=== PATIENT | female | born 1950 | race African-American/Black ===

== ENCOUNTER 2022-06-04 11:40 | Inpatient (IN) ==
[2022-06-04] MEDS ORDERED: SODIUM CHLORIDE 0.9% 500 ML IV STA ×2 (12:45→16:07)
[2022-06-04] MEDS ORDERED: ONDANSETRON 4 MG/2 ML VIAL IV STA (13:08)
[2022-06-04] MEDS ORDERED: MORPHINE 10 MG/1 ML VIAL IV STA (13:08)
[2022-06-04] MEDS ORDERED: MORPHINE 2 MG/1 ML SYRINGE ONE (13:13)
[2022-06-04 13:38] LABS: Albumin 2.1 G/DL (3.4-5.0); Bilirubin,Total 0.4 MG/DL (0.20-1.00); Calcium 8.8 MG/DL (8.5-10.1); Osmolality,Calculated 273.8 MOS/KG (273-304); Potassium 4.2 MMOL/L (3.5-5.1); Total Protein 6.1 G/DL (6.4-8.2)
[2022-06-04 13:52] LABS: Basophils # 0.1 10*3/uL (0.0-0.2); Basophils % 0.4 % (0.0-0.8); Eosinophils # 0.1 10*3/uL (0.0-0.87); Eosinophils % 0.5 % (0.00-10.9); Hematocrit 31.8 VOL% (35.7-47.0); Hemoglobin 9.9 GM/DL (12.0-16.0); Immature Granulocytes % 0.9 %; Immature Granulocytes Absolute 0.11 #; Lymphocytes % 15.9 % (21.3-54.2); Mean Corpuscular HGB Conc 31.1 GM/DL (32-36); Mean Corpuscular Volume 66.5 FL (87-102); Monocytes # 1.1 10*3/uL (0.11-0.8); Monocytes % 8.8 % (1.7-12.7); Neutrophils % 73.5 % (38.7-73.9); Platelet Count 489 T/CUMM (130-400); Red Blood Count 4.78 MC/CUMM (3.8-5.5); Red Cell Distribution Width 13.8 % (9.3-17.3); White Blood Count 12.7 T/CUMM (4-12)
[2022-06-04] MEDS ORDERED: MORPHINE 2 MG/1 ML SYRINGE IV STA (15:37)
[2022-06-04] MEDS ORDERED: HYDROmorphone 1 MG/1 ML SYRINGE IV STA ×2 (15:50→16:20)
[2022-06-04] MEDS ORDERED: ONDANSETRON 4 MG/2 ML VIAL IV PRN (16:27)
[2022-06-04] MEDS ORDERED: LACTULOSE 20 GM/30 ML UDCUP PO PRN (16:27)
[2022-06-04] MEDS ORDERED: DOCUSATE SODIUM 100 MG CAPSULE PO PRN (16:27)
[2022-06-04 16:37] LABS: Hypochromia 1+; Microcytosis 1+
[2022-06-04 16:38] LABS: Platelet Estimate Adequate
[2022-06-04] MEDS: SODIUM CHLORIDE 0.45% 1,000 ML IV SCH (17:17)
[2022-06-04] MEDS: ENOXAPARIN 40 MG/0.4 ML SYRINGE SUBCUT SCH (21:40)
[2022-06-05 05:34] LABS: Basophils # 0.1 10*3/uL (0.0-0.2); Basophils % 0.5 % (0.0-0.8); Eosinophils # 0.2 10*3/uL (0.0-0.87); Eosinophils % 1.8 % (0.00-10.9); Hemoglobin 9.2 GM/DL (12.0-16.0); Immature Granulocytes % 0.4 %; Immature Granulocytes Absolute 0.05 #; Lymphocytes # 3.1 10*3/uL (1.4-4.0); Lymphocytes % 24.4 % (21.3-54.2); Mean Corpuscular HGB Conc 30.7 GM/DL (32-36); Mean Corpuscular Volume 66.5 FL (87-102); Mean Platelet Volume 9.3 FL (9.6-12.0); Monocytes # 1.6 10*3/uL (0.11-0.8); Monocytes % 12.2 % (1.7-12.7); Neutrophils % 60.7 % (38.7-73.9); Platelet Count 512 T/CUMM (130-400); Red Blood Count 4.51 MC/CUMM (3.8-5.5); Red Cell Distribution Width 13.9 % (9.3-17.3); White Blood Count 12.9 T/CUMM (4-12)
[2022-06-05 05:53] LABS: Calcium 8.4 MG/DL (8.5-10.1); Osmolality,Calculated 266.1 MOS/KG (273-304); Potassium 4.2 MMOL/L (3.5-5.1)
[2022-06-05] MEDS: SODIUM CHLORIDE 0.45% 1,000 ML IV SCH (08:12)
[2022-06-05 10:40] LABS: RBC,Urine 1398 /HPF (0-4); Squamous Epithelial Cell,Urine Few /HPF (0-10); Urine Appearance Turbid (Clear); Urine Color Brown (Yellow)
[2022-06-05 10:41] LABS: Bilirubin,Urine Negative (Negative); Blood, Urine Large mg/dL (Negative); Glucose,Urine (UA) Negative (Negative); Ketones,Urine 15 mg/dL (Negative); Nitrite,Urine Negative (Negative); Protein,Urine >=300 mg/dL (Negative); Urine Urobilinogen 0.2 eU/dL (<2.0)
[2022-06-05] MEDS ORDERED: fentaNYL 50 MCG/HR PATCH TRANSDERM SCH (11:30)
[2022-06-05] MEDS: POLYETHYLENE GLYCOL POWDER 17 GM PACK PO SCH ×2 (13:03→22:20)
[2022-06-05] MEDS: cefTRIAXone 2,000 MG in SODIUM CHLORIDE 0.9% 100 ML IV SCH (14:51)
[2022-06-05] MEDS: HYDROmorphone 1 MG/1 ML SYRINGE IV PRN (18:23)
[2022-06-05] MEDS: ENOXAPARIN 40 MG/0.4 ML SYRINGE SUBCUT SCH (21:58)
[2022-06-06] MEDS: SODIUM CHLORIDE 0.45% 1,000 ML IV SCH ×2 (00:50→17:45)
[2022-06-06] MEDS: POLYETHYLENE GLYCOL POWDER 17 GM PACK PO SCH ×2 (09:49→20:30)
[2022-06-06] MEDS ORDERED: fentaNYL 100 MCG/HR PATCH TRANSDERM SCH (12:00)
[2022-06-06] MEDS: cefTRIAXone 2,000 MG in SODIUM CHLORIDE 0.9% 100 ML IV SCH (14:00)
[2022-06-06] MEDS: HYDROmorphone 1 MG/1 ML SYRINGE IV PRN ×3 (15:36→23:50)
[2022-06-06] MEDS: ENOXAPARIN 40 MG/0.4 ML SYRINGE SUBCUT SCH (20:30)
[2022-06-07] MEDS: POLYETHYLENE GLYCOL POWDER 17 GM PACK PO SCH (08:13)
[2022-06-07] MEDS: HYDROmorphone 1 MG/1 ML SYRINGE IV PRN (08:14)
[2022-06-07 16:08] VITALS: BP 144/68
[2022-06-07] MEDS: SODIUM CHLORIDE 0.45% 1,000 ML IV SCH (16:22)
[2022-06-07] MEDS: cefTRIAXone 2,000 MG in SODIUM CHLORIDE 0.9% 100 ML IV SCH (16:22)
[2022-06-07] MEDS ORDERED: clonazePAM 0.5 MG TABLET PO SCH (21:00)
== END 2022-06-07 16:07 | disposition hospice, home (50) | DRG 948 ==
LOC: N.TELES 11:40 → N.ED 11:40 → N.TELES 18:18 → SUATTDRO 06-06 15:33
PROVIDERS: ADMIT Hospitalist; ATTEND Internal Medicine